=== PATIENT | male | born 1965 | race Caucasian/White ===

== ENCOUNTER 2017-02-22 09:09 | Emergency (ER) | payer OTHER ==
[~2017-02-22] VITALS: Ht 175.3 cm; Wt 100.0 kg
[2017-02-22 09:15] VITALS: BP 144/98; PULSE 82; RESP 20; TEMP 98.1; O2SAT 97
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
[2017-02-22] MEDS ORDERED: IBUP800T23 PO (09:44)
[2017-02-22] MEDS ORDERED: CYCL5TAB PO (09:44)
[2017-02-22] MEDS ORDERED: ORPHENADRINE INJ 60 MG/2 ML AMP IM ONE (09:45)
[2017-02-22] MEDS ORDERED: KETOROLAC TROMETHAMINE 60 MG/2 ML (IM) VIAL IM ONE (09:45)
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
== END 2017-02-22 10:31 | disposition home or self-care (01) ==
LOC: NEPK 09:09
DX: S16.1XXA Strain of muscle, fascia and tendon at neck level, initial encounter (principal); I10 Essential (primary) hypertension; Z79.899 Other long term (current) drug therapy; V43.52XA Car driver injured in collision with other type car in traffic accident, initial encounter
CPT/HCPCS: 72050; 96372; 99284; J1885; J2360